=== PATIENT | male | born 1995 | race Caucasian/White ===

== ENCOUNTER 2016-09-11 17:20 | Emergency (ER) | payer OTHER ==
[~2016-09-11] VITALS: Ht 185.4 cm; Wt 87.8 kg
[2016-09-11 17:28] VITALS: TEMP 36.9; Ht 185.4 cm; Wt 87.8 kg
[2016-09-11] MEDS ORDERED: SODIUM CHLORIDE 0.9% 1000ML 1,000 ML IV STA (18:00)
[2016-09-11 18:40] LABS: BASO % 0.2 %; BASO ABS # 0.01 K/uL (0-0.2); COMPLETE YES; EOS % 1.4 %; HEMATOCRIT 47.7 % (42-52); IG% 0.2 %; LYMPH % 29.1 %; MEAN CELL VOLUME 86.4 fL (80-100); MEAN CORPUSCULAR HEMOGLOBIN 30.1 pg (25-34); MEAN CORPUSCULAR HGB CONC 34.8 g/dl (32-36); MEAN PLATELET VOLUME 10.3 fL (7.4-10.4); MONO % 8.3 %; NEUT % 60.8 %; PLATELET COUNT 171 K/uL (130-400); RED BLOOD COUNT 5.52 M/uL (4.7-6.1); WHITE BLOOD COUNT 5.15 K/uL (4.8-10.8)
[2016-09-11 18:47] LABS: URINE APPEARANCE CLEAR (CLEAR); URINE BILIRUBIN NEG (NEG); URINE COLOR YELLOW; URINE NITRITE NEG (NEG); URINE PH 6.5 (4.5-7.5); URINE SPECIFIC GRAVITY 1.025 (1.000-1.030); UROBILINOGEN NEG (NEG); ZZUR CULT IF INDIC CLEAN CATCH NO
[2016-09-11 18:48] LABS: MANUAL MICROSCOPIC REQUIRED? NO; REVIEW REQ? NO
[2016-09-11 18:58] LABS: BUN/CREATININE RATIO 13.9 (10-20); CALCIUM 9.1 mg/dl (8.5-10.1); CREATININE 0.94 mg/dl (0.60-1.40)
[2016-09-11 19:53] VITALS: BP 123/81; PULSE 58; O2SAT 100
--- NOTE | 2016-09-12 01:10 | EMERGENCY ROOM VISIT NOTE ---
History Report prepared by Ignacia: Benja Powell Under the Supervision of: Dr. Jovi Draper D.O. First contact with patient: 17:31 Chief Complaint: ABDOMINAL PAIN Stated Complaint: LOWER ABDOMINAL PAIN Nursing Triage Summary: PT VERBALIZES INTERMITTENT BILATERAL LOWER ABDOMINAL PAIN FOR A FEW WEEKS. DENIES CONSTIPATION/DIARRHEA/BLOOD IN STOOL. DENIES NAUSEA/VOMITING. PT VERBALIZES "I ALSO FEEL A SENSATION IN MY RIGHT TESTICAL THAT COMES AND GOES, I WOULDN'T NECESSARILLY CALL IT PAIN, BUT IT'S NOTICEABLE". History of Present Illness The patient is a 20 year old male who presents to the Emergency Room with complaints of intermittent lower abdominal pain that began three weeks prior to arrival. The patient states that his pain is sometimes more severe on one side, but has been present in both the right and left lower quadrants intermittently. He also notes that he has had some pain radiating into his right testicle. The pain onsets randomly, but he has noticed that he often has the pain 2-3 hours after drinking alcohol. The pain has been relieved with urination. Nothing else improves or worsens the pain. He does note having some soft stools over the past week. The patient denies headache, change in vision, fevers, chest pain, shortness of breath, nausea, vomiting, and melena. Source of History: patient Onset: Three weeks Position: abdomen (LLQ, RLQ ) Timing: intermittent Modifying Factors (Worsening): drinking (Alcohol) Modifying Factors (Relieving): other (Urinating) Associated Symptoms: + diarrhea Note: Right testicle pain Review of Systems Pt denies headache, change in vision, fevers, chest pain, shortness of breath, nausea, vomiting, diarrhea, pain with urination, and melena. Past Medical & Surgical Patient denies any past medical/surgical histories. Family History Patient notes no family histories. Social History Smoking Status: Current Some Day Smoker Alcohol Use: occasionally Drug Use: marijuana Marital Status: single Occupation Status: [employer] student Current/Historical Medications No Active Prescriptions or Reported Meds Allergies Coded Allergies: No Known Allergies (Unverified , 09/11/16) Physical Exam Vital Signs Date Time Temp Pulse Resp B/P Pulse Ox O2 Delivery O2 Flow Rate FiO2 09/11/16 19:53 58 18 123/81 100 09/11/16 18:40 58 14 128/85 100 Room Air 09/11/16 17:28 36.9 72 18 123/82 100 Room Air Physical Exam GENERAL: alert, well appearing, well nourished, no distress, non-toxic EYE EXAM: normal conjunctiva OROPHARYNX: no exudate, no erythema, lips, buccal mucosa, and tongue normal and mucous membranes are moist NECK: supple, no nuchal rigidity, no adenopathy, non-tender LUNGS: Clear to auscultation. Normal chest wall mechanics HEART: no murmurs, S1 normal and S2 normal ABDOMEN: abdomen soft, non-tender, normo-active bowel sounds, no masses, no rebound or guarding. BACK: Back is symmetrical on inspection and there is no deformity, no midline tenderness, no CVA tenderness. SKIN: no rashes and no bruising UPPER EXTREMITIES: upper extremities are grossly normal. LOWER EXTREMITIES: No pitting edema. NEURO EXAM: Normal sensorium, cranial nerves II-XII grossly intact, normal speech, no gross weakness of arms, no gross weakness of legs. : Normal external uncircumcised male genitalia. Testicles are non-tender, positive cremasteric reflex bilaterally. Medical Decision & Procedures Laboratory Results 09/11/16 18:20 Red Blood Count 5.52, Mean Corpuscular Volume 86.4, Mean Corpuscular Hemoglobin 30.1, Mean Corpuscular Hemoglobin Concent 34.8, Mean Platelet Volume 10.3, Neutrophils (%) (Auto) 60.8, Lymphocytes (%) (Auto) 29.1, Monocytes (%) (Auto) 8.3, Eosinophils (%) (Auto) 1.4, Basophils (%) (Auto) 0.2, Neutrophils # (Auto) 3.13, Lymphocytes # (Auto) 1.50, Monocytes # (Auto) 0.43, Eosinophils # (Auto) 0.07, Basophils # (Auto) 0.01 09/11/16 18:20 Test 09/11/16 18:20 White Blood Count 5.15 K/uL (4.8-10.8) Red Blood Count 5.52 M/uL (4.7-6.1) Hemoglobin 16.6 g/dL (14.0-18.0) Hematocrit 47.7 % (42-52) Mean Corpuscular Volume 86.4 fL (80-100) Mean Corpuscular Hemoglobin 30.1 pg (25-34) Mean Corpuscular Hemoglobin Concent 34.8 g/dl (32-36) Platelet Count 171 K/uL (130-400) Mean Platelet Volume 10.3 fL (7.4-10.4) Neutrophils (%) (Auto) 60.8 % Lymphocytes (%) (Auto) 29.1 % Monocytes (%) (Auto) 8.3 % Eosinophils (%) (Auto) 1.4 % Basophils (%) (Auto) 0.2 % Neutrophils # (Auto) 3.13 K/uL (1.4-6.5) Lymphocytes # (Auto) 1.50 K/uL (1.2-3.4) Monocytes # (Auto) 0.43 K/uL (0.11-0.59) Eosinophils # (Auto) 0.07 K/uL (0-0.5) Basophils # (Auto) 0.01 K/uL (0-0.2) RDW Standard Deviation 38.2 fL (36.4-46.3) RDW Coefficient of Variation 12.0 % (11.5-14.5) Immature Granulocyte % (Auto) 0.2 % Immature Granulocyte # (Auto) 0.01 K/uL (0.00-0.02) Urine Color YELLOW Urine Appearance CLEAR (CLEAR) Urine pH 6.5 (4.5-7.5) Urine Specific [place] 1.025 (1.000-1.030) Urine Protein NEG (NEG) Urine Glucose (UA) NEG (NEG) Urine Ketones NEG (NEG) Urine Occult Blood NEG (NEG) Urine Nitrite NEG (NEG) Urine Bilirubin NEG (NEG) Urine Urobilinogen NEG (NEG) Urine Leukocyte Esterase NEG (NEG) Urine WBC (Auto) 1-5 /hpf (0-5) Urine RBC (Auto) 0-4 /hpf (0-4) Urine Hyaline Casts (Auto) 0 /lpf (0-5) Urine Epithelial Cells (Auto) 10-20 /lpf (0-5) Urine Bacteria (Auto) NEG (NEG) Anion Gap 5.0 mmol/L (3-11) Est Creatinine Clear Calc Drug Dose 141.6 ml/min Estimated GFR () 134.7 Estimated GFR (Non- 116.2 BUN/Creatinine Ratio 13.9 (10-20) Calcium Level 9.1 mg/dl (8.5-10.1) Total Bilirubin 0.8 mg/dl (0.2-1) Direct Bilirubin 0.2 mg/dl (0-0.2) Aspartate Amino Transf (AST/SGOT) 20 U/L (15-37) Alanine Aminotransferase (ALT/SGPT) 27 U/L (12-78) Alkaline Phosphatase 81 U/L (45-117) Total Protein 8.1 gm/dl (6.4-8.2) Albumin 4.3 gm/dl (3.4-5.0) Lipase 153 U/L (73-393) Laboratory results per my review. Medications Administered Medications (Trade) Dose Ordered Sig/Jose Route Start Time Stop Time Status Last Admin Dose Admin Sodium Chloride (Nss 1000ml) 1,000 ml @ 999 mls/hr Q1H1M STAT IV 09/11/16 18:00 09/11/16 19:00 DC 09/11/16 18:30 999 MLS/HR ED Course ED COURSE: Vital signs were reviewed and showed Normal Vitals. The patients medical record was reviewed The above diagnostic studies were performed and reviewed. ED treatments and interventions as stated above. 1734: The patient was evaluated in room C6. A complete history and physical examination was performed. 1800: Ordered Sodium Chloride 1000 mL @ 999 mL/hr IV. 0: I reevaluated the patient at this time and updated him on the findings of the visit thus far. 1951: Upon reevaluation, the patient is resting in bed.I discussed my findings with the patient and he understands and agrees with the treatment plan. Based on the patients age, coexisting illnesses, exam and lab findings the decision to treat as an outpatient was made. The patient remained stable while under my care. The patient appeared well at the time of discharge. Medical Decision Differential diagnoses includes but is not limited to gastritis, peptic ulcer disease, GERD, gallbladder disease, pancreatitis, small bowel obstruction, acute coronary syndrome, pericarditis, ischemic bowel, irritable bowel disease, irritable bowel syndrome, appendicitis, diverticulitis, malignancy, hernia, urinary tract infection, torsion, perforation, trauma, infectious. Patient is a 20-year-old male who presents the ER for bilateral lower abdominal pain which started over week ago and has becoming going intermittently. This resolved this past Saturday but the patient came in today just at this evaluated. He has no other complaints at this time. His abdominal exam is benign. CBC along with BMP, LFTs, bilirubin and lipase were normal. UA was negative. Patient was updated regards to his findings. With his benign exam, no pain since Saturday and unremarkable labs I did not feel any imaging was prudent at this time. He was discharged follow-up with his primary care doctor. Discussed with Pt concerning signs and symptoms to watch out for. Pt was instructed to follow up with their PCP and discussed with the patient their option to return to the ED at anytime for persistent or worsening symptoms. The appropriate anticipatory guidance and out-patient management, including indications for return to the emergency department, were explained at length to the patient and understood. Impression Primary Impression: Abdominal pain Scribe Attestation The scribe's documentation has been prepared under my direction and personally reviewed by me in its entirety. I confirm that the note above accurately reflects all work, treatment, procedures, and medical decision making performed by me. Departure Information Dispostion Home / Self-Care Prescriptions No Active Prescriptions or Reported Meds Referrals No Doctor, Assigned (PCP) Forms HOME CARE DOCUMENTATION FORM, IMPORTANT VISIT INFORMATION Patient Instructions My [facility] Additional Instructions Please follow up with your primary care doctor or if you are a student [facility] services with in the next 24 hours. Any worsening of your symptoms, please return to the ED immediately. This includes fevers greater than 100.4, worsening pain, persistent nausea vomiting, swelling of your testicle, severe pain in testicle, or any other concerning signs or symptoms from your standpoint. Problem Qualifiers Primary Impression: Abdominal pain Abdominal location: unspecified location Qualified Codes: R10.9 - Unspecified abdominal pain
== END 2016-09-11 19:53 | disposition home or self-care (01) ==
LOC: C.EDB 17:20 → C.EDC 19:53
DX: R10.32 Left lower quadrant pain (principal); R10.31 Right lower quadrant pain; F17.210 Nicotine dependence, cigarettes, uncomplicated

== ENCOUNTER 2017-08-06 14:54 | Emergency (ER) | payer OTHER ==
[~2017-08-06] VITALS: Ht 185.4 cm; Wt 81.6 kg
[2017-08-06 14:58] VITALS: TEMP 36.7; Ht 185.4 cm; Wt 81.6 kg
[2017-08-06] MEDS ORDERED: NAPR-1169 PO (15:56)
[2017-08-06 16:04] LABS: EOS % 0.1 %; EOS ABS # 0.01 K/uL (0-0.5); HEMATOCRIT 45.3 % (42-52); HEMOGLOBIN 16.7 g/dL (14.0-18.0); IG# 0.01 K/uL (0.00-0.02); LYMPH % 12.1 %; MEAN CELL VOLUME 87.1 fL (80-100); MEAN CORPUSCULAR HEMOGLOBIN 32.1 pg (25-34); MEAN CORPUSCULAR HGB CONC 36.9 g/dl (32-36); MEAN PLATELET VOLUME 10.4 fL (7.4-10.4); MONO % 7.8 %; MONO ABS # 0.58 K/uL (0.11-0.59); NEUT % 79.9 %; NEUT ABS # 5.93 K/uL (1.4-6.5); PLATELET COUNT 173 K/uL (130-400); RED CELL DISTRIBUTION WIDTH CV 12.2 % (11.5-14.5); RED CELL DISTRIBUTION WIDTH SD 38.9 fL (36.4-46.3); WHITE BLOOD COUNT 7.43 K/uL (4.8-10.8)
[2017-08-06 16:17] LABS: ALBUMIN 4.5 gm/dl (3.4-5.0); CALCIUM 9.5 mg/dl (8.5-10.1); CREATININE 1.12 mg/dl (0.60-1.40)
[2017-08-06 16:21] LABS: TOTAL PROTEIN 7.9 gm/dl (6.4-8.2)
--- NOTE | 2017-08-06 16:34 | DIAGNOSTIC IMAGING REPORT ---
SCROTAL ULTRASOUND CLINICAL HISTORY: Left testicular pain. COMPARISON STUDY: None. TECHNIQUE: Grayscale and color and duplex Doppler sonography of the scrotum was performed. FINDINGS: The right testis measures 5.3 x 2.4 x 3.6 cm and the left measures 4.5 x 2.4 x 3.5 cm. Color flow within each testis is symmetric. There is no testicular mass. There is no evidence for epididymitis. There is a 1.5 cm right epididymal cyst. IMPRESSION: 1. Normal sonographic appearance of the testes. No evidence of testicular torsion. No testicular mass. 2. No evidence for epididymitis. 3. 1.5 cm right epididymal cyst. Electronically signed by: Osvaldo Lomeli M.D. 08/06/2017 4:32 PM Dictated Date/Time: 08/06/2017 4:32 PM
--- NOTE | 2017-08-06 17:04 | DIAGNOSTIC IMAGING REPORT ---
ABDOMEN AND PELVIS CT WITHOUT CONTRAST CT DOSE: 731.21 mGy.cm HISTORY: Left flank and groin pain. TECHNIQUE: Multiaxial CT images of the abdomen and pelvis were performed without the use of intravenous and oral contrast according to the standard department stone protocol. A dose lowering technique was utilized adhering to the principles of ALARA. COMPARISON STUDY: None. FINDINGS: The lung bases are clear. No pneumoperitoneum. No pneumatosis. The unenhanced liver, spleen, pancreas, and adrenal glands are unremarkable. The gallbladder is contracted. No bowel wall thickening or obstruction. Normal appendix. No retroperitoneal lymphadenopathy. Normal right kidney. There are 2 punctate nonobstructing stones within the left kidney. Mild left hydronephrosis. There is a 2 mm stone either within or just beyond the left ureterovesical junction best seen on image 139. Prominent ileocolic lymph nodes are these are of uncertain clinical significance. IMPRESSION: 1. A 2 mm stone either within or just beyond the left ureterovesical junction. There is associated mild left hydronephrosis. 2. Left-sided nephrolithiasis. Electronically signed by: Florentino Machuca M.D. 08/06/2017 5:02 PM Dictated Date/Time: 08/06/2017 4:56 PM
[2017-08-06 17:46] VITALS: BP 124/71; PULSE 66; O2SAT 98
--- NOTE | 2017-08-06 20:05 | EMERGENCY ROOM VISIT NOTE ---
History Report prepared by Ignacia: Benja Powell Under the Supervision of: Dr. Jovi Draper D.O. First contact with patient: 15:21 Chief Complaint: TESTICULAR PAIN Stated Complaint: TESTICULAR PAIN History of Present Illness The patient is a 21 year old male who presents to the Emergency Room after referral from [facility] with complaints of now-resolved testicular pain that began this morning several hours ago. The patient states that he was experiencing some discomfort in the left testicle this morning that was present for a " couple of hours." He first visited with [facility] who took a urine specimen and prescribed him Naproxen. He notes that after taking the Naproxen his testicular pain has resolved. He has no pain currently. Pain is a 0/10 currently as it has resolved. He denies any associated urinary symptoms, testicle swelling, history of STDs, traumatic episodes, or recent sexual activity. He did masturbate last night which was normal. The patient did note having some LLQ abdominal pain and Left flank pain this morning. This resolved spontaneously after a BM this morning. He denies headache, change in vision, fevers, chest pain, shortness of breath, nausea, vomiting, diarrhea, pain with urination, and melena. Source of History: patient Onset: Several hours ago Position: other (Left testicle) Timing: resolved Modifying Factors (Relieving): other (Naproxen) Associated Symptoms: + abdominal pain, + back pain (Left flank) Review of Systems See HPI for pertinent positives & negatives. A total of 10 systems reviewed and were otherwise negative. Past Medical & Surgical Patient denies any histories. Family History Patient reports no known family medical history. Social History Smoking Status: Never Smoker Alcohol Use: occasionally Drug Use: marijuana Marital Status: single Occupation Status: [employer] student Current/Historical Medications Scheduled Naproxen (Naprosyn), 500 MG PO BID Allergies Coded Allergies: No Known Allergies (Unverified , 08/06/17) Physical Exam Vital Signs Date Time Temp Pulse Resp B/P (MAP) Pulse Ox O2 Delivery O2 Flow Rate FiO2 08/06/17 17:46 66 14 124/71 98 08/06/17 17:00 64 16 129/65 100 Room Air 08/06/17 15:40 82 16 119/70 100 Room Air 08/06/17 14:58 36.7 93 16 117/76 100 Room Air Physical Exam GENERAL: Sitting up in bed, alert, well appearing, well nourished, no distress, non-toxic EYE EXAM: normal conjunctiva. OROPHARYNX: no exudate, no erythema, lips, buccal mucosa, and tongue normal and mucous membranes are moist NECK: supple, no nuchal rigidity, no adenopathy, non-tender LUNGS: Clear to auscultation. Normal chest wall mechanics HEART: no murmurs, S1 normal and S2 normal ABDOMEN: abdomen soft, non-tender, normo-active bowel sounds, no masses, no rebound or guarding. BACK: Back is symmetrical on inspection and there is no deformity, no midline tenderness, no CVA tenderness. SKIN: no rashes and no bruising UPPER EXTREMITIES: upper extremities are grossly normal. LOWER EXTREMITIES: No pitting edema. NEURO EXAM: Normal sensorium, cranial nerves II-XII grossly intact, normal speech, no gross weakness of arms, no gross weakness of legs. : Reveals normal external uncircumcised genitalia, positive cremasteric reflexes, no inguinal hernias, no groin masses. Medical Decision & Procedures ER Provider Diagnostic Interpretation: Radiology results as stated below per my review and the radiologist's interpretation: ABDOMEN AND PELVIS CT WITHOUT CONTRAST CT DOSE: 731.21 mGy.cm HISTORY: Left flank and groin pain. TECHNIQUE: Multiaxial CT images of the abdomen and pelvis were performed without the use of intravenous and oral contrast according to the standard department stone protocol. A dose lowering technique was utilized adhering to the principles of ALARA. COMPARISON STUDY: None. FINDINGS: The lung bases are clear. No pneumoperitoneum. No pneumatosis. The unenhanced liver, spleen, pancreas, and adrenal glands are unremarkable. The gallbladder is contracted. No bowel wall thickening or obstruction. Normal appendix. No retroperitoneal lymphadenopathy. Normal right kidney. There are 2 punctate nonobstructing stones within the left kidney. Mild left hydronephrosis. There is a 2 mm stone either within or just beyond the left ureterovesical junction best seen on image 139. Prominent ileocolic lymph nodes are these are of uncertain clinical significance. IMPRESSION: 1. A 2 mm stone either within or just beyond the left ureterovesical junction. There is associated mild left hydronephrosis. 2. Left-sided nephrolithiasis. Electronically signed by: Florentino Machuca M.D. 08/06/2017 5:02 PM Dictated Date/Time: 08/06/2017 4:56 PM SCROTAL ULTRASOUND CLINICAL HISTORY: Left testicular pain. COMPARISON STUDY: None. TECHNIQUE: Grayscale and color and duplex Doppler sonography of the scrotum was performed. FINDINGS: The right testis measures 5.3 x 2.4 x 3.6 cm and the left measures 4.5 x 2.4 x 3.5 cm. Color flow within each testis is symmetric. There is no testicular mass. There is no evidence for epididymitis. There is a 1.5 cm right epididymal cyst. IMPRESSION: 1. Normal sonographic appearance of the testes. No evidence of testicular torsion. No testicular mass. 2. No evidence for epididymitis. 3. 1.5 cm right epididymal cyst. Electronically signed by: Osvaldo Lomeli M.D. 08/06/2017 4:32 PM Dictated Date/Time: 08/06/2017 4:32 PM Laboratory Results 08/06/17 15:40 Red Blood Count 5.20, Mean Corpuscular Volume 87.1, Mean Corpuscular Hemoglobin 32.1, Mean Corpuscular Hemoglobin Concent 36.9, Mean Platelet Volume 10.4, Neutrophils (%) (Auto) 79.9, Lymphocytes (%) (Auto) 12.1, Monocytes (%) (Auto) 7.8, Eosinophils (%) (Auto) 0.1, Basophils (%) (Auto) 0.0, Neutrophils # (Auto) 5.93, Lymphocytes # (Auto) 0.90, Monocytes # (Auto) 0.58, Eosinophils # (Auto) 0.01, Basophils # (Auto) 0.00 08/06/17 15:40 Test 08/06/17 15:40 White Blood Count 7.43 K/uL (4.8-10.8) Red Blood Count 5.20 M/uL (4.7-6.1) Hemoglobin 16.7 g/dL (14.0-18.0) Hematocrit 45.3 % (42-52) Mean Corpuscular Volume 87.1 fL (80-100) Mean Corpuscular Hemoglobin 32.1 pg (25-34) Mean Corpuscular Hemoglobin Concent 36.9 g/dl (32-36) Platelet Count 173 K/uL (130-400) Mean Platelet Volume 10.4 fL (7.4-10.4) Neutrophils (%) (Auto) 79.9 % Lymphocytes (%) (Auto) 12.1 % Monocytes (%) (Auto) 7.8 % Eosinophils (%) (Auto) 0.1 % Basophils (%) (Auto) 0.0 % Neutrophils # (Auto) 5.93 K/uL (1.4-6.5) Lymphocytes # (Auto) 0.90 K/uL (1.2-3.4) Monocytes # (Auto) 0.58 K/uL (0.11-0.59) Eosinophils # (Auto) 0.01 K/uL (0-0.5) Basophils # (Auto) 0.00 K/uL (0-0.2) RDW Standard Deviation 38.9 fL (36.4-46.3) RDW Coefficient of Variation 12.2 % (11.5-14.5) Immature Granulocyte % (Auto) 0.1 % Immature Granulocyte # (Auto) 0.01 K/uL (0.00-0.02) Urine Color DK YELLOW Urine Appearance CLOUDY (CLEAR) Urine pH 7.5 (4.5-7.5) Urine Specific [place] 1.025 (1.000-1.030) Urine Protein NEG (NEG) Urine Glucose (UA) NEG (NEG) Urine Ketones TRACE (NEG) Urine Occult Blood 1+ (NEG) Urine Nitrite NEG (NEG) Urine Bilirubin NEG (NEG) Urine Urobilinogen NEG (NEG) Urine Leukocyte Esterase TRACE (NEG) Urine WBC (Auto) 5-10 /hpf (0-5) Urine RBC (Auto) 10-30 /hpf (0-4) Urine Hyaline Casts (Auto) 5-10 /lpf (0-5) Urine Epithelial Cells (Auto) >30 /lpf (0-5) Urine Bacteria (Auto) NEG (NEG) Urine Renal Epithelial Cells /lpf (0-5) Anion Gap 8.0 mmol/L (3-11) Est Creatinine Clear Calc Drug Dose 117.9 ml/min Estimated GFR () 108.3 Estimated GFR (Non- 93.4 BUN/Creatinine Ratio 10.4 (10-20) Calcium Level 9.5 mg/dl (8.5-10.1) Total Bilirubin 1.5 mg/dl (0.2-1) Direct Bilirubin 0.3 mg/dl (0-0.2) Aspartate Amino Transf (AST/SGOT) 16 U/L (15-37) Alanine Aminotransferase (ALT/SGPT) 21 U/L (12-78) Alkaline Phosphatase 74 U/L (45-117) Total Protein 7.9 gm/dl (6.4-8.2) Albumin 4.5 gm/dl (3.4-5.0) Lipase 148 U/L (73-393) Laboratory results per my review. ED Course ED COURSE: Vital signs were reviewed and showed normal vitals. The patients medical record was reviewed The above diagnostic studies were performed and reviewed. ED treatments and interventions as stated above. 1522: The patient was evaluated in room A4B. A complete history and physical examination was performed. 1729: Upon reevaluation, the patient is feeling improved.I discussed my findings with the patient and he understands and agrees with the treatment plan. Based on the patients age, coexisting illnesses, exam and lab findings the decision to treat as an outpatient was made. The patient remained stable while under my care. The patient appeared well at the time of discharge. Medical Decision Differential diagnosis: Etiologies such as torsion, mass, infection, hernia, hydrocele, epididymitis, trauma, intra-abdominal process, as well as others were entertained. Patient is a 21-year-old male who presents the ER for left testicle pain. This initially started in his left flank and radiated down. No fevers. No urinary complaints. CBC along with BMP, LFTs, lipase is unremarkable. Bilirubin was slightly elevated. UA was contaminated with multiple epithelial cells. CT shows a stone which is past and currently in the bladder. Ultrasound testicle was negative. Patient was updated at bedside. He is completely pain-free. We will not repeat urine as he has passed the stone and is contaminated. Patient was updated at bedside discharge follow-up with PCP as an outpatient. Discussed with Pt concerning signs and symptoms to watch out for. Pt was instructed to follow up with their PCP and discussed with the patient their option to return to the ED at anytime for persistent or worsening symptoms. The appropriate anticipatory guidance and out-patient management, including indications for return to the emergency department, were explained at length to the patient and understood. Medication Reconcilliation Current Medication List: was personally reviewed by me Blood Pressure Screening Patient's blood pressure: Normal blood pressure Impression Primary Impression: Hydronephrosis Additional Impression: Stone, bladder Scribe Attestation The scribe's documentation has been prepared under my direction and personally reviewed by me in its entirety. I confirm that the note above accurately reflects all work, treatment, procedures, and medical decision making performed by me. Departure Information Dispostion Home / Self-Care Referrals [facility] Services (PCP) Forms HOME CARE DOCUMENTATION FORM, IMPORTANT VISIT INFORMATION, WORK / SCHOOL INSTRUCTIONS Patient Instructions My [facility] Additional Instructions Please follow up with your primary care doctor or if you are a student, [facility] with in the next 24 hours. Any worsening of your symptoms, please return to the ED immediately. This includes any fevers greater than 100.4, worsening pain, chest pain, shortness breath, persistent nausea, vomiting, unable to eat or drink, or any other concerning signs or symptoms from your standpoint. You just passed a renal stone which is in your bladder. Please follow-up with [facility]. Any fevers above 100.4 please return immediately to the ER. Problem Qualifiers Primary Impression: Hydronephrosis Hydronephrosis type: unspecified Qualified Codes: N13.30 - Unspecified hydronephrosis
== END 2017-08-06 17:43 | disposition home or self-care (01) ==
LOC: C.EDB 14:54 → C.EDA 17:43
DX: N13.30 Unspecified hydronephrosis (principal); N21.0 Calculus in bladder